=== PATIENT | female | born 1970 | race Caucasian/White ===

== ENCOUNTER → 2018-02-26 | Outpatient (CLI) | payer OTHER ==
--- NOTE | 2018-02-26 09:38 | RAD ---
Indication:HEPATIC CYST TECHNIQUE: Grayscale, color Doppler and spectral waveform is of the abdomen obtained. COMPARISON:None FINDINGS:No gallstones, pericholecystic fluid or gallbladder wall thickening. Visualized pancreas is within normal limits. IVC within normal limits. No abnormal dilation of the visualized aorta. Liver measures 13 cm in longest dimension and is normal in size and echogenicity. 1.1 x 0.6 x 0.6 cm anechoic well-circumscribed lesion is seen in the right hepatic lobe. Main portal vein is patent with hepatopedal flow. CBD measures 4 mm in diameter and is within normal limits. Right kidney measures 10.4 cm in length and is normal in size without hydronephrosis. Spleen measures 9.5 cm in length and is normal in size. Left kidney measures 10.0 cm in length without hydronephrosis. 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 Clinically correlate with outside/prior imaging if available. Otherwise no other acute findings. Electronically signed by: Gabe Andrews DO (02/26/2018 9:35 AM) [facility]
== END | disposition home or self-care (01) ==
LOC: US 07:44
PROVIDERS: ATTEND Physician Assistant
DX: K76.89 Other specified diseases of liver (principal)
CPT/HCPCS: 76700